=== PATIENT | male | born 2000 | race Caucasian/White ===

== ENCOUNTER 2025-03-17 10:52 | Emergency (ER) | payer OTHER, SELFPAY ==
--- NOTE | ~2025-03-17 | XR_ITS ---
EXAM/ PROCEDURE: XR shoulder RT min 2V - 03/17/2025 11:36 CDT HISTORY: 24 years old Male with pain, fall 06 March COMPARISON: None available TECHNIQUE: 5 view(s) FINDINGS/ IMPRESSION: There are no fractures or dislocations.Joint spaces are within normal limits. Reviewed, dictated and finalized at location A.
[2025-03-17 11:02] VITALS: BP 134/85; PULSE 91; RESP 20; TEMP 37; O2SAT 98
--- OUTSIDE RECORDS SUMMARY | 2025-03-17 11:03 | XMS_ITS | Clinical Summary ---
Author Organization [facility] Address [address] [place] [address] Care Team Providers Care Supervising Law Enforcement Analyst Name Role Phone Gaviota Cleary MD Primary Care Provider Allergies No known active allergies Medications semaglutide (Ozempic) 0.25 mg or 0.5 mg(2 mg/1.5 mL) pen injector injection Inject 0.25 mg under the skin every 7 days Active Active Problems Problem Noted Date Diagnosed Date Laceration of finger 03/05/2015 Overview (12/22/2016): Laceration of right index finger w/o foreign body w/o damage to nail Social History Tobacco Use Types Packs/Day Years Used Date Smoking Tobacco: Never Smokeless Tobacco: Never Personal Safety Answer Date Recorded Getting School Help Needed Not on file 11/25 Sex and Gender Information Value Date Recorded Sex Assigned at Not on file Legal Sex Male 3:43 AM FOCUSER Gender Identity Not on file Sexual Orientation Not on file Obstetrics History Last Filed Vital Signs Vital Sign Reading Time Taken Comments Blood Pressure 116/70 09/13/2019 7:43 PM FOCUSER Pulse 96 09/13/2019 7:43 PM FOCUSER Temperature 36.7 C (98 F) 03/21/2024 2:35 PM CDT Respiratory Rate 22 09/13/2019 7:43 PM FOCUSER Oxygen Saturation 97% 09/13/2019 7:43 PM FOCUSER Inhaled Oxygen Concentration - - Weight 176.9 kg (390 lb) 03/21/2024 2:35 PM CDT Height 175.3 cm (5' 9) 09/13/2019 7:43 PM FOCUSER Body Mass Index 57.59 09/13/2019 7:43 PM FOCUSER Plan of Treatment Health Maintenance Due Date Last Done Comments Depression Screening 1998 Hepatitis C Screening 1998 Regular Well Visit/Exam 18-64 2016 DTaP/Tdap/Td Vaccine (7 - Td or Tdap) 04/09/2023 04/09/2013, 01/20/2004, 09/16/1999, Additional history exists Covid-19 Vaccine ( season) 2024 07/02/2021, 06/07/2021 Influenza Vaccine (Season Ended) 2025 Hepatitis B Screening Completed 09/16/1999 , 06/14/1999, 1998, Additional history exists Varicella Vaccines Completed 03/18/2010, 06/14/1999 HPV Vaccines Completed 10/09/2013, 05/14, 04/09/2013 Pneumococcal vaccine <65 Aged Out No longer eligible based on patient's age to complete this topic Insurance [facility] [employer] [place] [facility] Care Teams Supervising Law Enforcement Analyst Relationship Specialty Start Date End Date Gaviota Cleary MD [address] [place] [id number] PCP - General 12/09/16
--- OUTSIDE RECORDS SUMMARY | 2025-03-17 11:03 | XMS_ITS | Clinical Summary ---
Author Organization [facility] Address [address] [address] Phone Care Team Providers Care Fretted String Instrument Repairer Name Role Phone Grayson Oliveros MD Unavailable [phone] Gaviota Garcia MD Primary Care Provider [phone] Allergies No known active allergies Medications traMADol (ULTRAM) 50 MG Tablet Take 1 Tab by mouth every 6 hours as needed for Moderate or more severe pain. 10 Tab 9 Active Additional Information Patient not taking.Reported on 12/01/2022 naproxen (NAPROSYN) 500 MG Tablet Take 1 Tab by mouth 2 times daily as needed for Moderate or more severe pain. 20 Tab 9 Active Additional Information Patient not taking.Reported on 12/01/2022 omeprazole (PRILOSEC) 20 MG CAPSULE DELAYED RELEASEIndicatio ns:Gastroesophag eal reflux disease, esophagitis presence not specified Take 1 Cap by mouth daily. 30 Cap 0 Active Additional Information Patient not taking.Reported on 12/01/2022 montelukast (SINGULAIR) 10 MG Tablet Take 10 mg by mouth every evening. Active albuterol (ProAir HFA) 108 (90 Base) MCG/ACT Aerosol SolutionIndicati ons:SOB (shortness of breath) take 2 Puffs by inhalation every 4 hours as needed for Wheezing or Cough. 18 g 2 Active Additional Information Patient not taking.Reported on 08/28/2022 promethazine-dex tromethorphan (PROMETHAZINE-DM ) 6.25-15 MG/5ML SyrupIndications :Cough Take 5 mL by mouth every 4 hours as needed for Cough. 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 Immunizations Immunization Administration Dates Next Due Covid-19, Mrna, Lnp-s, Pf, 3 0 Mcg/0.3 Ml Dose ([employer]) 07/02/2021,06/07/2021 DTAP VACCINE 01/20/2004, 0,1998,10/13,1998 Hepatitis B Vaccine, Pediatric/adolescent 1998,1998,1998 Hib Vaccine,unspecified Formulation 02/2000,1998,1998,08/11 Human Papillomavirus Vaccine (HPV), quadrivalent 10/09/2013,04/09/2013 Inactivated Polio Vaccine 01/20/2004 MMR Vaccine 01/20/2004,06/14/1999 Meningococcal Vaccine 02/15/2016,10/09/2013 OPV 09/16/1999,1998,1998 TDAP Vaccine 04/09/2013 Varicella Vaccine Live 03/18/2010,06/14/1999 Family History Medical History Relation Name Comments Diabetes Maternal Grandfather Heart Disease Maternal Grandfather Hypertension Maternal Grandfather Heart Disease Maternal Grandmother Hypertension Maternal Grandmother Diabetes Paternal Grandfather Heart Disease Paternal Grandfather Relation Name Status Comments Father Alive Maternal Grandfather Maternal Grandmother Mother Alive Paternal Grandfather Social History Tobacco Use Types Packs/Day Years Used Date Smoking Tobacco: Never Smokeless Tobacco: Never Tobacco Cessation:Counseling Given: Yes Alcohol Use Standard Drinks/Week Comments No 0 (1 standard drink = 0.6 oz pur e alcohol) Sexually Active Control Partners Comments Not Currently Sex and Gender Information Value Date Recorded Sex Assigned at Not on file Legal Sex Male 8:02 PM CDT Gender Identity Not on file Sexual Orientation Not on file Last Filed Vital Signs Vital Sign Reading Time Taken Comments Blood Pressure 140/98 12/01/2022 9:57 AM CDT Pulse 118 12/01/2022 9:57 AM CDT Temperature 36.7 C (98.1 F) 12/01/2022 9:57 AM CDT Respiratory Rate 18 12/01/2022 9:57 AM CDT Oxygen Saturation 96% 12/01/2022 9:57 AM CDT Inhaled Oxygen Concentration - - Weight 145.2 kg (320 lb) 12/01/2022 9:57 AM CDT Height 175.3 cm (5' 9) 04/17/2019 10:24 AM CDT Body Mass Index 47.26 04/17/2019 10:24 AM CDT Plan of Treatment Health Maintenance Due Date Last Done Comments Hepatitis C Virus (HCV) Screening 1998 DTaP/Tdap/Td Immunization (7 - Td or Tdap) 04/09/2023 04/09/2013, 01/20/2004, 09/16/1999, Additional history exists SARS-COV-2 Immunization ( season) 2024 07/02/2021, 06/07/2021 Influenza Immunization (Season Ended) 2025 Respiratory Syncytial Virus (RSV) Immunization (Adult) (1 - 1-dose 75+ series) 2073 Hepatitis B Immunization Completed 999, 1998, 1998 Human Papillomavirus (HPV) Immunization Completed 10/09/2013, 04/09/2013 Meningococcal Immunization (ACWY) Completed 02/15/2016, 10/09/2013 Pneumococcal Immunization Combined Aged Out No longer eligible based on patient's age to complete this topic Rotavirus Immunization Aged Out No lo nger eligible based on patient's age to complete this topic Insurance GENERIC Care Teams Fretted String Instrument Repairer Relationship Specialty Start Date End Date Gaviota Garcia MD [address] [place] [id number] PCP - General 08/20/15 Grayson Oliveros MD General Surgery 08/20/15
--- OUTSIDE RECORDS SUMMARY | 2025-03-17 11:03 | XMS_ITS | Referral Summary ---
Author Organization [facility] Address [address] [place] [address] Care Team Providers Care Mini Lab Operator Name Role Phone Gaviota Cleary MD Primary [...] on file Legal Sex Male 3:43 AM CHIROPRACTOR ASSISTANT Gender Identity Not on file Sexual Orientation Not on file Last Filed Vital Signs Vital Sign Reading Time Taken Comments Blood Pressure 116/70 09/13/2019 7:43 PM CHIROPRACTOR ASSISTANT Pulse 96 09/13/2019 7:43 PM CHIROPRACTOR ASSISTANT Temperature 36.7 C (98 F) 03/21/2024 2:35 PM CDT Respiratory Rate 22 09/13/2019 7:43 PM CHIROPRACTOR ASSISTANT Oxygen Saturation 97% 09/13/2019 7:43 PM CHIROPRACTOR ASSISTANT Inhaled Oxygen Concentration - - Weight 176.9 kg (390 lb) 03/21/2024 2:35 PM CDT Height 175.3 cm (5' 9) 09/13/2019 7:43 PM CHIROPRACTOR ASSISTANT Body Mass Index 57.59 09/13/2019 7:43 PM CHIROPRACTOR ASSISTANT Plan of Treatment Not on file Insurance [employer] [email or web address] [place] [email or web address] [place] Care Teams Mini Lab Operator Relationship Specialty Start Date End Date Gaviota Cleary MD [address] [place] [address] PCP - General 12/09/16
--- OUTSIDE RECORDS SUMMARY | 2025-03-17 11:08 | XMS_ITS | Continuity of Care Document ---
Author Organization [facility] Address [address] [place] [address] Phone Care Team Providers Care Garage Door Technician Name Role Phone Alexandre Toledo MD, FACS Unavailable Unavailab le Allergies, Adverse Reactions, Alerts Substance Reaction Status Criticality No Known allergies Medications Medication Instructions Dosage Effective Dates (start - stop) Status Comments METHYLPHENIDATE ER (unknown strength) Not Available - Active Procedures Procedure Date Office/outpatient Visit, Est Corneal Pachymetry Eye Exam, New Patient Corneal Pachymetry No Charge Optomap Fundus Photos 013 No Charge Refraction Advance Directives Directive Yes / No Effective Date File Name Resuscitation Not Answered N/A N/A Life Support Not Answered N/A N/A Intubation Not Answered N/A N/A Antibiotics Not Answered N/A N/A IV Fluid Support Not Answered N/A N/A Tube Feed Not Answered N/A N/A Other Directive N/A N/A WARNING:The information contained in this section is historical and is provided for information only and does not constitute a legal document or any assurance that the information is still accurate. Please verify the information with the recio of the legal document before using it for clinical purposes. Encounters Encounter Description Practice Location Reason(s) For Visit Diagnoses Date Provider Providers Copied on Encounter Office/outpat ient Visit, Est [facility], [address], [place], [place], [id number], tel:[phone] SEC Sosa N Stephaniah CORNEAL DYSTROPHY NOS [email or web address] [facility], [address], [place], [place], [id number], . tel:[phone] Referring Provider: Ros Cortés OD, [facility] [address] [place], [address]. tel:[phone] [facility], [address] [address] [facility] [address], [place], [place], [id number], tel:[phone] SEC Albin N Stephaniah ENDOTHEL CORNEA DYSTRPHY [email or web address] [facility], [address], [place], [place], [id number], . tel:[phone] Referring Provider: Ros Cortés OD, [facility] [address] [place], [address]. tel:[phone] [facility], [address] [facility] [address], [place], [place], [id number], tel:[phone] SEC Albingerard Haro No Information [address]. [address] [facility], [address], [place], [place], [id number], . tel:[phone] Family History Family Member Type Diagnosis Age At Onset Grandparents Problem (finding) Diabetes mellitus Payers Payer name Insurance type Covered democrat ID Authorpérez meredith(s) [place] [id number] Social History Type Description Quantity Date Captured Comments Alcohol Use Details No Caffeine Use Details No Tobacco Use Status No Information Smoking Status Never smoker Non-Smoking Tobacco Use Details : No Details Available : No Details Available Sex Male Chief Complaint And Reason For Visit No Information Reason For Referral Reason For Referral No Information History Of Present Illness Encounter Date Complaint History Of Prese nt Illness No Information Functional Status Date Functional Assessmen t No Information Instructions Date Instruction Additional Infor mation - 1 yr complete with Pachs Relat ed to See impression: general plan General plan -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 Will continue to observe condition and or symptoms. Call if VA worsens. Educational materials provided:about today's exam.Pachs needed every visit. 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 Discussed dx with pt and mother. Discussed hereditary in nature. amd dsaek understood for treatment. LEN 128.5% recommended. Educational materials provided:Medication Instruction. PACHS needed on return Related to ENDOTHEL CORNEA DYSTRPHY Assessments Type Assessment Date No Information Patient Care Teams Name Effective Dates (start - stop) Status Members No Information
--- NOTE | 2025-03-17 11:44 | ED_ITS ---
HPI - Extremity Injury (Upper) General Chief Complaint: Extremity Injury, Upper Stated Complaint: Fall Injury/Right Arm Time Seen by Provider: 03/17/25 11:46 Source: patient, RN notes reviewed and old records reviewed Mode of arrival: ambulatory Limitations: no limitations History of Present Illness HPI narrative: 24-year-old male presents to the [facility] with decreased range of motion, right shoulder pain after falling on the 06 of March. Patient states that he slipped and fell landing on his shoulder. Had taken a hydrocodone the next day. Has not seek medical care denies hitting head. Denies loss of consciousness. Related Data Home Medications ?Medication ?Instructions ?Recorded ?Confirmed ?Last Taken ?Type No Home Medications 03/17/25 Unknown History Allergies Allergy/AdvReac Type Severity Reaction Status Date / Time No Known Allergies Allergy Verified 03/17/25 11:07 Review of Systems Review of Systems: All systems reviewed & are unremarkable except as noted in HPI and below Constitutional: Constitutional: Reports no additional constitutional complaints Musculoskeletal: Musculoskeletal: Reports as per HPI Integumentary/Breasts: Skin/Breast: Reports system reviewed and no additional complaints, except as docu PMFSH Comments At the time of my signature, I reviewed and agree with the nursing past medical, surgical, social, and family history. There is no relevant family history pertinent to the patient complaint. Exam Const: General: cooperative, healthy appearing, comfortable, no acute distress, well developed, alert and well nourished Nutritional Appearance: well nourished and obese morbidly obese Orientation/consciousness: patient oriented x3 Limitations: no limitations HENMT: Head: normal to inspection Eyes: General: appearance normal, both eyes and all related structures Alignment and Position: alignment normal Neck: Neck: normal visual inspection, full ROM, no lymphadenopathy and no meningeal signs Chest: Chest palpation & inspection: normal inspection of the chest Resp: Effort & Inspection: normal respiratory effort and able to speak in complete sentences Cardio: Rate: regular rate Skin: General skin exam: normal color and no rashes or lesions noted Neuro: General: patient oriented x3, gait normal, moves all extremities and no meningeal signs Cognition (Neuro): normal cognition Speech: normal speech Gait exam (Neuro): Normal gait present Extrem: General: normal to inspection, full ROM, capillary refill normal and normal gait Right upper extremity: normal capillary refill, shoulder/upper arm tenderness and normal ROM ( With discomfort over 90?); no swelling, no abrasions, no lacerations, no ecchymosis, no crepitus, no penetrating wound and no deformity, elbow/forearm normal to inspection and normal ROM and wrist normal to inspection, normal ROM and normal vascular exam Psych: Appearance: grossly normal and well kempt Mental Status: mental status grossly normal Speech and movement: Normal speech and movement present and Clear speech present Affect: normal affect Attitude: cooperative Course Course Level of Care: Express Care Visit Vital Signs Vital signs: Vital Signs Temperature 98.6 F 03/17/25 11:02 Pulse Rate 91 03/17/25 11:02 Respiratory Rate 20 03/17/25 11:02 Blood Pressure 134/85 03/17/25 11:02 Pulse Oximetry 98 03/17/25 11:02 Oxygen Delivery Room Air 03/17/25 11:02 Temperature 98.6 F 03/17/25 11:02 Pulse Rate 91 03/17/25 11:02 Respiratory Rate 20 03/17/25 11:02 Blood Pressure 134/85 03/17/25 11:02 Pulse Oximetry 98 03/17/25 11:02 Oxygen Delivery Room Air 03/17/25 11:02 Reviewed MDM - Extremity Injury (Upper) MDM Narrative Medical decision making narrative: patient sitting in exam, nontoxic, vitals are stable. Patient presents with shoulder discomfort patient's x-ray is negative patient appropriate for outpatient treatment with close follow-up Discharge instructions reviewed with patient, as well as provided in writing per nursing staff. The instructions also include specific and strict return/GO TO THE ER as well as f/u information. All questions have been answered, and the patient deny any further questions with discharge and discharge plan. Some parts of this dictation were generated by voice recognition software and may contain typographical and/or grammatical inaccuracies. Differential Diagnosis Differential diagnosis: Likely other (Shoulder fracture, dislocation, sprain, strain, rotator cuff injury) Imaging Data Radiologist's impression: EXAM/ PROCEDURE: XR shoulder RT min 2V - 03/17/2025 11:36 CDT HISTORY: 24 years old Male with pain, fall 06 March COMPARISON: None available TECHNIQUE: 5 view(s) FINDINGS/ IMPRESSION: There are no fractures or dislocations.Joint spaces are within normal limits. Critical Care Time Critical Care Time Critical Care Time: No Discharge Plan Discharge Clinical Impression: Acute pain of right shoulder Patient Disposition: Home Condition: Stable Instructions: Antibiotic Form, Shoulder Sprain (ED), Shoulder Pain (ED) Additional Instructions: Your Xray did not show a fracture. Ice should be applied to help reduce swelling. It can be used for 20 to 30 minutes, every 2-3 hours while awake. Do not apply ice directly to your skin. You can alternate ibuprofen 600mg and Tylenol 650mg every 4 hours as needed for pain Please schedule a follow-up visit with your personal physician for further evaluation and treatment within 2 weeks especially if symptoms persist. If you are having a hard time finding a physician please call our [facility] group liaison at [phone]. For new or worsening symptoms go directly to the emergency room Patient Language: Thai Prescriptions: No Action No Home Medications Follow-up/Referrals: PHYSICIAN,JET DYEING MACHINE TENDER [Primary Care Provider] - Eda Padilla, [Physician] - ( [facility] follow-up, right shoulder pain) Stand Alone Forms: Work/School Release IP Time of Disposition: 12:14
== END 2025-03-17 12:18 | disposition home or self-care (01) ==
PROVIDERS: Emergency Provider Nurse Practitioner
DX: M25.511 Pain in right shoulder (principal)
CPT/HCPCS: 73030; 99213; G0463